=== PATIENT | male | born 1955 | race Caucasian/White ===

== ENCOUNTER 2024-03-22 08:12 | Outpatient (OUT) | payer MEDICARE, OTHER, SELFPAY ==
--- NOTE | 2024-03-22 | XR_ITS ---
The [address] [address] Patient Name: CLARISA FERRIS MRN: [id number] date: 1955 Sex: M Assigned Patient Location: Current Patient Location: Accession/Order Number: [id number] Exam Date: 03/22/2024 08:22 Report Date: 03/23/2024 04:51 At the request of: SARAH MARIN Procedure: XR foot LT min 3V PROCEDURE: XR foot LT min 3V HISTORY: LEFT FOOT PAIN COMPARISON: None. FINDINGS: BONES:Mild degenerative changes of the first metatarsophalangeal joint. No fracture, dislocation, bone lesion. Small calcaneal plantar spur. SOFT TISSUES:No visible soft tissue swelling. EFFUSION:None visible. OTHER: Negative. XR/XR foot LT min 3V IMPRESSION: 1. Mild degenerative changes of the first metatarsophalangeal joint favoring osteoarthritis. Electronically authenticated by: DALY DENTON Date: 03/23/2024 04:51
== END 2024-03-22 08:13 | disposition home or self-care (01) ==
PROVIDERS: Visit Provider Podiatrist Foot & Ankle Surgery
DX: M79.672 Pain in left foot (principal); M19.072 Primary osteoarthritis, left ankle and foot
CPT/HCPCS: 73630